=== PATIENT | female | born 1935 | race Caucasian/White ===

== ENCOUNTER → 2019-03-03 | Outpatient (CLI) | payer MEDICARE | END | disposition home or self-care (01) | LOC: PCVCCLINIC 13:00 | PROVIDERS: ATTEND Internal Medicine Cardiovascular Disease | DX: I10 Essential (primary) hypertension (principal); R07.9 Chest pain, unspecified; R06.02 Shortness of breath; R00.1 Bradycardia, unspecified; E78.00 Pure hypercholesterolemia, unspecified; E11.9 Type 2 diabetes mellitus without complications; E78.5 Hyperlipidemia, unspecified; Z82.49 Family history of ischemic heart disease and other diseases of the circulatory system; Z88.8 Allergy status to other drugs, medicaments and biological substances; Z88.0 Allergy status to penicillin; Z79.82 Long term (current) use of aspirin; Z79.899 Other long term (current) drug therapy | CPT/HCPCS: 36415; 80061; 93005; G0463 ==

== ENCOUNTER → 2019-03-24 | Outpatient (CLI) | payer MEDICARE ==
[~2019-03-24] MED LIST: REGADENOSON 0.4 MG/5 ML DISP.SYRIN. IV ONE
--- NOTE | 2019-03-24 10:32 | PCVCIMAG ---
APPROVED REPORT Study performed: 03/24/2019 07:53:41 EXAM: Comprehensive 2D, Doppler, and color-flow Echocardiogram Patient Location: Echo lab Room #: 2Status: routine BSA: 1.80 HR: 72 bpmBP: 148/64 mmHg Rhythm: NSR Other Information Study Quality: Good Risk Factors: Cardiac Risk Factors: HTN, Hyperlipidemia, DM Indications Diabetes Dyspnea Chest Pain Hypertension/HDD 2D Dimensions IVSd: 11.74 (7-11mm)LVOT Diam: 20.42 (18-24mm) LVDd: 48.85 mm PWd: 10.40 (7-11mm)Ascending Ao: 31.44 (22-36mm) LVDs: 42.55 (25-40mm) Left Atrium: 43.67 (27-40mm) Aortic Root: 22.26 mm LV Single Plane 4CH: 57.75 % LV Single Plane 2CH: 66.99 % Biplane EF: 62.8 % Volumes Left Atrial Volume (Systole) Single Plane 4CH: 60.20 mLSingle Plane 2CH: 71.61 mL Biplane LA Volume: 69.00 mLLA ESV Index: 38.00 mL/m2 Aortic Valve AoV Peak Robles.: 1.48 m/s AO Peak Gr.: 8.79 mmHgLVOT Max P.23 mmHg LVOT Max V: 0.75 m/s KARI Vmax: 1.65 cm2 AI Vmax: 4.26 m/s AI Waller: 1.86 m/s2 AI PHT: 672.72 ms Mitral Valve E/A Ratio: 0.6 MV Decel. Time: 141.34 ms MV E Max Robles.: 0.76 m/s MV A Robles.: 1.19 m/s IVRT: 72.66 ms TDI E/Lateral E': 12.67E/Medial E': 15.20 Medial E' Robles.: 0.05 m/s Lateral E' Robles.: 0.06 m/s Pulmonary Valve PV Peak Robles.: 0.99 m/sPV Peak Gr.: 3.92 mmHg Pulmonary Vein P Vein S: 0.36 m/sP Vein A: 0.34 m/s P Vein D: 0.64 m/sP Vein A Dur.: 83.0 msec P Vein S/D Ratio: 0.56 Tricuspid Valve TR Peak Robles.: 2.60 m/s TR Peak Gr.: 27.03 mmHg TV Vmax: 0.64 m/sPA Pressure: 34.00 mmHg Left Ventricle The left ventricle is normal size. There is normal LV segmental wall motion. There is normal left ventricular wall thickness. Left ventricular systolic function is normal. The left ventricular ejection fraction is within the normal range. LVEF is 60-65%. Grade I - abnormal relaxation pattern. Findings suggest the left atrial pressure is elevated. Right Ventricle The right ventricle is normal size. The right ventricular systolic function is normal. Atria Left atrium is mildly dilated. The right atrium size is normal. Aortic Valve Aortic valve is trileaflet. Mild aortic valve sclerosis. Trace to mild aortic regurgitation. There is no aortic valvular stenosis. Mitral Valve The mitral valve is normal in structure. There is no mitral valve regurgitation noted. No evidence of mitral valve stenosis. Tricuspid Valve The tricuspid valve is normal in structure. Trace tricuspid regurgitation with a PA pressure of 34 mmHg Mild pulmonary hypertension.. Pulmonic Valve The pulmonary valve is normal in structure. Trace pulmonic regurgitation. Great Vessels The aortic root is normal in size. The ascending aorta is normal in size. Aortic arch is normal in caliber. IVC is normal in size and collapses >50% with inspiration. Pericardium There is no pericardial effusion. There is no pleural effusion. <Conclusion> The left ventricle is normal size. LVEF is 60-65%. Grade I - abnormal relaxation pattern. Findings suggest the left atrial pressure is elevated. The right ventricle is normal size. Left atrium is mildly dilated. Aortic valve is trileaflet. Mild aortic valve sclerosis. Trace to mild aortic regurgitation. There is no mitral valve regurgitation noted. Trace tricuspid regurgitation with a PA pressure of 34 mmHg Mild pulmonary hypertension.. The aortic root is normal in size. There is no pericardial effusion.
--- NOTE | 2019-03-24 16:04 | PCVCIMAG ---
APPROVED REPORT Imaging Protocol: Rest Tc-99m/Stress Tc-99m 1 day Study performed: 03/24/2019 09:17:24 Indication: Chest pain, Dyspnea Patient Location: Out-Patient Stress Nurse: Zoie Alberto RN, Suzette Yan RN MN Tech:TORRIE MooreMT Ht: 5 ft 5 in Wt: 160 lbs BSA: 1.80 m2 HR: 75 bpm BP: 195/83 mmHg BMI: 26.6 Rhythm: NSR, First degree AV Block Medical History Medical History: Hyperlipidemia, HTN, Diabetes Medications: ASA, Diltiazem, Furosemide, Losartan, Crestor Allergies: PCN, Codeine Cardiac Risk Factors: Age Pretest Chest Pain Characteristics: No chest pain Exercise History: Sedentary Physical Disabilities: Knees Resting Data Rest SPECT myocardial perfusion imaging was performed in supine position 45 minutes following the intravenous injection of 9.8 mCi of Tc-99m Sestamibi. Time of rest injection: 0850 Date: 03/24/2019 Administration Route: IV Administration Site: Right Arm Pharmacologic Stress Pharmacologic stress test was performed by injecting Regadenoson 0.4 mg IV push over 10-15 seconds immediately followed by the intravenous injection of 32.7 mCi of Tc-99m Sestamibi. Time of stress injection: 1010 Date: 03/24/2019 Administration Route: IV Administration Site: Right Arm Gated Stress SPECT was performed 45 minutes after stress injection. The images were gated to evaluate regional wall motion and calculate left ventricular ejection fraction. Stress Test Details Stress Test: Pharmacologic stress testing performed using 0.4 mg of regadenoson per 5 mL given IV over 10 seconds. Reason for pharmacologic stress test: physical limitation, knee issues. HRMax Heart Rate (APMHR): 135 bpm Resting HR: 75 bpmTarget HR (85% APMHR): 114 bpm Max HR Achieved: 93 bpm % of APMHR: 68 Recovery HR: 90 bpm BP Resting BP: 195/83 mmHg Max BP: 166/74 mmHg Recovery BP: 175/74 mmHg ECG Resting ECG: Sinus Rhythm, 1st degree AV block Stress ECG: Sinus Rhythm, 1st degree AV block, NS T wave changes Arrhythmia: PAC's, PVC's Recovery ECG: Sinus Rhythm, 1st degree AV block, NS T wave changes Clinical Reason for Termination: Completed protocol Stress Symptoms: Dyspnea, Chest pressure Symptoms resolved with caffeine. Stress ECG Conclusion ECG: Non-ischemic Study Quality Study: Good Study Data Post stress, the left ventricular ejection was 72%.. SSS: 0 SRS: 0 SDS: 0 TID = 0.98. Perfusion No evidence of stress induced ischemia or prior myocardial infarction. Wall Motion Normal left ventricular size and function with no regional wall motion abnormalities. Nuclear Conclusion No evidence of stress induced ischemia or prior myocardial infarction. Normal left ventricular size and function with no regional wall motion abnormalities. Post stress, the left ventricular ejection was 72%. No prior study available for comparison. Interpreted by: Micky Valdes MD Electronically Approved: 03/24/2019 12:26:08 <Conclusion> ECG: Non-ischemic
== END | disposition home or self-care (01) ==
LOC: PCVCIMAG 08:00
PROVIDERS: ATTEND Internal Medicine Cardiovascular Disease
DX: I06.2 Rheumatic aortic stenosis with insufficiency (principal); I27.20 Pulmonary hypertension, unspecified; E11.9 Type 2 diabetes mellitus without complications; Z88.0 Allergy status to penicillin; Z88.5 Allergy status to narcotic agent
CPT/HCPCS: 78452; 93017; 93306; A9500; J2785